=== PATIENT | male | born 1975 | race African-American/Black ===

== ENCOUNTER 2016-06-25 17:38 | Emergency (ER) | payer OTHER ==
[~2016-06-25] VITALS: Ht 162.6 cm; Wt 77.1 kg
[~2016-06-25 17:38] MED LIST: AMOXICILLIN500 M2 PO; AMOXICOT500 MG PO; AMOXIL500 MG PO; AUGMENTIN 875875 MG PO; BACTRIM 400 MG-1 TAB PO; BACTRIM DS 8001 TAB PO; BACTRIM DS TAB1 EACH PO; BETAMETHASONE D1 CRE TOP; CYCLOBENZAPRINE10 M1 PO; FLEXERIL 5MG TAB5 MG PO; FLEXERIL10 MG PO; MOTRIN600 MG PO; MOTRIN800 MG PO; NAPROSYN 500 M500 MG PO; NAPROXEN500 MG PO; NASONEX17 GM NASB; NORCO 325 MG-51 TAB PO; NORFLEX100 MG PO; PERCOCET 325 MG1 TA2 PO; PERCOCET 5-3251 EACH PO; PRILOSEC 20MG C20 MG PO; PROAIR HFA0.09 MG/Ac INH; ROBITUSSIN W/CO10 ML PO; TESSALON PERLE100 M1 PO; TESSALON PERLE100 MG PO; TYLENOL #31 TAB PO; VICODIN 5-3001 EACH PO; VICODIN5-300 PO; ZITHROMAX Z-PA250 M1 PO; ZITHROMAX250 M2 PO
[2016-06-25 18:06] VITALS: BP 133/86
--- NOTE | 2016-06-25 18:56 | ED HEADACHE COMPLAINT ---
History of Present Illness General Chief Complaint: Headache Stated Complaint: SUTTON Source: patient Exam Limitations: no limitations Vital Signs & Intake/Output Vital Signs & Intake/Output Vital Signs Date Time Temp Pulse Resp B/P Pulse O2 O2 Flow FiO2 Ox Delivery Rate 06/25 1806 97.4 91 15 133/86 100 Room Air Allergies Coded Allergies: NO KNOWN ALLERGIES (09/17/15) Reconcile Medications Cyclobenzaprine HCl 5 MG TABLET 1 TAB PO TIDPRN PRN PAIN Ibuprofen 800 MG TABLET 1 TAB PO TID PAIN Imiquimod 5 % CREAM.PACK 1 LIZETTE TOP DAILY AFFECTED AREA(S) (Reported) Oxycodone HCl/Acetaminophen (Percocet 5-325 MG Tablet) 5 MG-325 MG TABLET 1 TAB PO BID PRN PAIN Triage Note: PT TO ED FOR EXACERBATION OF CHRONIC SHOULDER AND BACK PAIN AND INTERMITTENT HEADACHES FOR THE PAST WEEK, NO INJURY, DID NOT HIT HEAD, REPORTING NO OTC TX "BECAUSE I DIDNT HAVE ANY AND I DIDN'T WANT TO BUY IT" DENIES VISION CHANGES, ALL NEUROS GROSSLY INTACT IN TRIAGE, DENIES PHOTOPHOBIA, N/V, DIZZINESS. Triage Nurses Notes Reviewed? yes Onset: Gradual Duration: week(s): (1), intermittent, waxing and waning Timing: recent history Quality/Severity: mild, moderate, achy Severity Numbers: 5 Head Injury Location: global No Modifying Factors: none Associated Symptoms: r shoulder upper back pain HPI: This is a 41-year-old male who presents to emergency room complaining of exacerbation of his right shoulder and upper back pain associated with intermittent generalized headaches for the past 1 week. He denies any known injury or trauma. He states that his primary care physician is attempting to get him scheduled in with pain management. He denies any numbness or tingling to his extremities no chest pain shortness of breath cough or hemoptysis. Toradol pain nausea or vomiting. He denies any leg pain numbness or tingling. He has not taken anything for his symptoms, he currently denies a headache there is no fever no chills no photophobia or vision changes. He states he has had headaches in the past. No other modifying factors or associated symptoms otherwise. Past History Travel History Traveled to [place] past 21 day No Medical History Any Pertinent Medical History? 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 No Review of Systems Review of Systems Constitutional: Reports: see HPI. All Other Systems: Reviewed and Negative Comments Review of systems: See HPI, All other systems negative. Constitutional, no chills no fever, no malaise no weight loss HEENT: no sore throat no congestion Cardiovascular: no palpitation , no orthopnea no ankle swelling Skin, no rashes, no change in skin Respiratory: No dyspnea no cough no sputum GI: No nausea no vomiting, no diarrhea, : No dysuria No hematuria, no frequency, no discharge Muscle skeletal: joint pain, no joint swelling, back pain, no neck pain, Neurologic: No numbness no confusion, headache Psych: No stress Heme/endocrine: No bruising no bleeding Immunology: No lymphadenopathy Physical Exam Physical Exam General Appearance: well developed/nourished, no apparent distress, alert, awake Cranial Nerves: normal hearing, normal speech, PERRL Comments: Well-developed well-nourished person in no acute distress HEENT: Normal EENT exam; PERRL, EOMI, no nystagmus. HEAD is atraumatic. moist mucous membranes. Neck: Supple, no midline or paracervical tenderness, normal range of motion without pain or tenderness negative Brudzinski's, negative Kernig's Back: No midline tenderness there is right-sided para muscular tenderness to the upper back and trapezius muscle, no CVA tenderness. Full range of motion Cardiovascular: Regular rate and rhythms no murmurs rubs or gallops, normal JVP Respiratory: Chest nontender.There were no bony deformities, no asymmetry. No respiratory distress. Patient speaking in full complete sentences. Breath sounds clear to auscultation bilaterally: NO W/R/R Abdomen: Soft, nontender nondistended, Extremity: No edema, full range of motion of extremities, normal and equal pulses bilaterally, 5 out of 5 strength noted to bilateral upper and lower extremities the right shoulder is atraumatic, no ecchymosis no swelling no deformity tender to palpation over the lateral and posterior aspect of the right shoulder Neuro: Alert oriented x3, motor sensory normal, cranial nerves II through XII grossly intact. There were no obvious focal neurologic abnormalities. Skin: No appreciable rash on exposed skin, skin is warm and dry. Psych: Mood and affect is normal, memory and judgment is normal. Core Measures Severe Sepsis Present: No Septic Shock Present: No Progress Differential Diagnosis: encephalitis, IC mass/tumor, intracranial Hem., meningitis, migraine SUTTON, musculoskeletal pain, tension SUTTON, chronic pain rotator cuff injury Plan of Care: There is been no recent injury or trauma no fall I do not believe the patient given the duration of his symptoms requires imaging, there no neurologic deficits he is in agreement with this plan I advised to follow-up with his primary care physician who is attempting to schedule him for pain management. Prescriptions were provided advised rest ice TE is declining sling he feels comfortable this plan clear discharge Departure Departure Time of Disposition: 1904 Disposition: HOME OR SELF CARE Condition: Stable Clinical Impression Primary Impression: Chronic back pain Referrals: GASPER ANDERSEN APRN (PCP/Family) Additional Instructions: REST, ICE, IBUPROFEN, FLEXERIL AND PERCOCET DIRECTED. FOLLOW UP WITH YOUR PMD THIS WEEK. Departure Forms: Customer Survey General Discharge Information Prescriptions: Current Visit Scripts Cyclobenzaprine HCl 1 TAB PO TIDPRN PRN PAIN #15 TAB Oxycodone HCl/Acetaminophen (Percocet 5-325 MG Tablet) 1 TAB PO BID PRN PAIN #10 TAB Ibuprofen 1 TAB PO TID #30 TAB
[2016-06-25] MEDS ORDERED: CYCLOBENZAPRINE5 M2 PO (19:07)
[2016-06-25] MEDS ORDERED: IBUPROFEN800 M1 PO (19:07)
[2016-06-25] MEDS ORDERED: PERCOCET 5-3251 EACH PO (19:07)
[2016-06-25] MEDS ORDERED: IMIQUIMOD1 EACH TOP (19:10)
[2016-10-22] MEDS ORDERED: CYCLOBENZAPRINE10 M1 PO (18:24)
[2016-10-22] MEDS ORDERED: TRAMADOL HCL50 M1 PO (18:24)
[2016-10-22] MEDS ORDERED: BROMFED DM COU118 M1 PO (18:24)
== END 2016-06-25 19:07 ==
LOC: ERH 17:38
DX: G89.29 Other chronic pain (principal); M54.6 Pain in thoracic spine